=== PATIENT | male | born 1945 | race Caucasian/White ===

== ENCOUNTER 2023-01-22 06:42 | Day surgery (SDC) | payer MEDICARE, OTHER, SELFPAY ==
[2023-01-18 09:44] VITALS: BMI 23.3
[2023-01-22] VITALS (8 sets, daily range): BP systolic 114–164; BP diastolic 55–81; PULSE 66–77; RESP 8–17; TEMP 36.4–36.7; O2SAT 92–99; BMI 21.6
--- NOTE | 2023-01-22 | PATH_ITS ---
[facility] Accession Number: [id number] No. of containers..01 Tissue . 01 Material submitted: . gallbladder - GALLBLADDER AND CONTENTS . 01 Diagnosis: Galbladder and Contents, Cholecystectomy: Chronic cholecystitis and cholelithiasis. MRV 01/25/2023 1340 Local . 01 Electronically signed: . Tawny Rabago MD, Pathologist NPI- [id number] . 01 Gross description: . The specimen is received in formalin labeled with the patient's name, , and gallbladder consists of a single previously disrupted gallbladder measuring 5.6 x 2.9 x 1.4 cm. The serosal surface is green to yellow and wrinkled with a full thickness defect, 0.8 cm in greatest dimension. No pericystic lymph nodes are identified. The cystic duct is clamped, unobstructed, and measures 0.2 cm in diameter (inked blue). The gallbladder is further opened to reveal less than 1 mL of green viscous bile and a single brown oval calculus, 1.4 cm in greatest dimension. The mucosal surface is green and velvety with no polyps or lesions seen. The wall measures 0.7 cm in thickness. Check Services Clerk sections to include the cystic duct margin are submitted in cassette A1. ([id number]) /MRV 01/24/2023 1240 Local . 01 Pathologist provided ICD-10: K80.10 . 01 CPT . 744827 Performed at: 01 [facility] [address] [place] [address] [id number] MD Da Luna MD Phone: [phone]
[2023-01-22] MEDS: LACTATED RINGERS 1,000 ML 42 ML IV (07:11)
--- NOTE | 2023-01-22 07:43 | PM.HP.1 ---
History of Present Illness History of Present Illness Date Patient Seen: 01/22/23 Time Patient Seen: 07:43 [address] [place] [facility] [place]: Zeynep is in for his laparoscopic cholecystectomy today. His symptoms have been mild since November. See office note from November for details. [facility] Medical History (Updated 01/18/23 @ 09:45 by Helen Torres RN) Arthritis Bladder cancer Elevated cholesterol GERD (gastroesophageal reflux disease) Hypertension Douglas syndrome Surgical History (Updated 01/18/23 @ 09:45 by Helen Torres RN) History of urologic surgery Family History Father Hypertension Mother Cancer Daughter Cancer Social History household members: spouse Smoking Status: Never smoker alcohol intake: current Meds Home Medications and Allergies Home Medications Medication Instructions Recorded Confirmed Type amlodipine 10 mg-benazepril 40 mg 1 cap PO DAILY 11/19/22 01/22/23 History capsule cholecalciferol (vitamin D3) 50 50 mcg PO 3XW 11/19/22 01/22/23 History mcg (2,000 unit) capsule doxazosin 2 mg tablet 2 mg PO 2XW 11/19/22 01/22/23 History vitamin B complex 1 cap PO 3XW 11/19/22 01/22/23 History Allergies Allergy/AdvReac Type Severity Reaction Status Date / Time Penicillins Allergy Unknown Rash as Verified 01/22/23 06:58 young adult Exam Vital Signs (past 8 hours): - 01/22/23 07:04 Temperature 97.9 F Pulse Rate 67 Respiratory Rate 16 Blood Pressure 164/81 H Pulse Oximetry 99 Const General: healthy appearing Resp Effort & Inspection: normal respiratory effort Assessment & Plan Assessment and plan (1) Gallstone: Qualifiers: Cholecystitis presence: without cholecystitis Biliary obstruction: without biliary obstruction Qualified Code(s): K80.20 - Calculus of gallbladder without cholecystitis without obstruction Status: Acute Plan We reviewed the risks and benefits of laparoscopic cholecystectomy and he would like to proceed.
[2023-01-22] MEDS: CEFAZOLIN 2 GM/100 ML PREMIX 100 ML IV (08:01)
--- NOTE | 2023-01-22 08:15 | SUR.OPER ---
Supine on padded OR bed, head on pillow, right arm secured on padded arm board at <90 degrees abduction, left arm wrapped in gel and tucked against body, legs uncrossed, safety belt at thigh, tape over blanket over lower legs, footboard in place
[2023-01-22] MEDS: BUPIVACAINE 0.5% (PF) 30 ML, EPINEPHrine 0.15 MG INJ (08:21)
--- NOTE | 2023-01-22 08:48 | P.OP_ITS ---
Operative Date/Time/Diagnoses Date of procedure: 01/22/23 Time of procedure: 08:49 Pre-op diagnosis: Cholelithiasis Post-op diagnosis: same Procedure & Clinicians Procedure: Laparoscopic cholecystectomy Same procedure as scheduled: Yes Surgeon: Ray Domingo Communications Tech: Laureano Booker Anesthesia Type: General Operative Notes Procedure in detail: The patient was given preoperative antibiotic. The patient was brought to the operating room, placed on the table in the supine position. General endotracheal anesthesia was induced. The abdomen was prepped and draped. A time-out was performed. We made a 1 cm infraumbilical incision. We dissected down to the base of the umbilical stalk using cautery. We grasped the umbilical stalk with a Ketty clamp to elevate the abdominal wall. We scored the fascia in the midline with cautery 1 cm. We pierced the peritoneum with a Peon clamp. The Arie port was placed and the abdomen was insufflated to 15 mmHg. A 5 mm 30 degree laparoscopic was inserted. There was no evidence of any injury from the entry. Next, we placed 5 mm ports in the subxiphoid position and right upper quadrant at the midclavicular line and anterior axillary line. Patient was then positioned in reverse Trendelenburg and the table was tilted to the left. The gallbladder was grasped at the dome and retracted cephalad. We then dissected the cystic structures with a combination of hook cautery and blunt dissection. We obtained a critical view. We placed clips on the cystic duct and artery and divided the cystic duct and artery sharply between the clips. The gallbladder was then dissected off the liver and placed in a specimen retrieval bag. We irrigated the right upper quadrant and all the aspirate returned clear. We then removed the 5 mm ports under direct vision we removed the Arie port. We then injected some local into the fascia and closed the fascia with 2 interrupted 0 Vicryl sutures. The skin incisions were closed with 4-0 Monocryl and Steri-Strips were applied. Band-Aids were applied over the Steri-Strips. EBL: 10 mL Specimen: Gallbladder Laureano OROZCO provided assistance with exposure, retraction and closure of incisions. Post-operative Condition: stable Disposition: PACU
[2023-01-22] MEDS: HYDROMORPHONE 2 MG INJ IV (09:39)
[2023-01-22] MEDS: OXYCODONE IR 5 MG TABLET PO (09:55)
[2023-01-22] MEDS: ACETAMINOPHEN 325 MG TABLET 650 MG PO (09:55)
== END 2023-01-22 10:24 | disposition home or self-care (01) ==
PROVIDERS: PCP Internal Medicine; Referring Provider Surgery; Visit Provider Surgery
PROC: 0FT44ZZ Resection of Gallbladder, Percutaneous Endoscopic Approach (ICD-10-PCS; CPT 47562; principal; 2023-01-22 07:45)
DX: K80.10 Calculus of gallbladder with chronic cholecystitis without obstruction (principal)
CPT/HCPCS: 47562; J0171; J0690; J1100; J1170; J2250; J2405; J2704; J3010; J3490

== ENCOUNTER → 2025-05-06 09:36 | Outpatient (CLI) | payer MEDICARE, OTHER, SELFPAY ==
[2025-05-06 10:18] LABS: Add Manual Diff / Slide Review NO; Hematocrit 45.0 % (41-53); Hemoglobin 15.3 g/dL (13.5-17.5); Lymphocytes Absolute Auto 2000 /uL (1100-4500); Mean Corpuscular HGB Conc 34.1 % (30-36); Mean Corpuscular Hemoglobin 27.7 PG (26-34); Mean Corpuscular Volume 81.1 fL (80-100); Platelet Count 249 X10^3/uL (150-400)
[2025-05-06 10:38] LABS: Alanine Aminotransferase 42 IU/L (<50); Albumin 4.6 g/dL (3.5-5.0); Albumin Globulin Ratio 1.7 (1.0-2.8); Alkaline Phosphatase 86 U/L (38-126); Blood Urea Nitrogen 20 mg/dL (9-20); Calcium 9.9 mg/dL (8.4-10.2); Carbon Dioxide 28 mmol/L (22-32); Chloride 104 mmol/L (98-107); Cholesterol 195 mg/dL (140-199); Estimated Glomerular Filt Rate > 60 mL/min (>60); Globulin 2.7 g/dL (1.7-4.1); Glucose 90 mg/dL (70-99); HDL Cholesterol 80 mg/dL (40-60); HEMOLYSIS < 15 (0-50); Potassium 4.8 mmol/L (3.4-5.1); Sodium 140 mmol/L (137-145); Total Protein 7.3 g/dL (6.3-8.2); Triglycerides 164 mg/dL (35-150)
[2025-05-06 11:08] LABS: TSH w/ Reflex to FT4 0.90 uIU/mL (0.47-4.68)
== END ==
PROVIDERS: PCP Nurse Practitioner Family; Referring Provider Nurse Practitioner Family; Visit Provider Nurse Practitioner Family
DX: Z15.09 Genetic susceptibility to other malignant neoplasm (principal); I10 Essential (primary) hypertension; Z12.5 Encounter for screening for malignant neoplasm of prostate; Z13.220 Encounter for screening for lipoid disorders; M19.90 Unspecified osteoarthritis, unspecified site
CPT/HCPCS: 36415; 80053; 80061; 84443; 85025; G0103